=== PATIENT | male | born 1965 ===

== ENCOUNTER 2023-09-30 10:43 | Outpatient (AMB) | payer OTHER, MEDICAID, SELFPAY ==
--- NOTE | 2023-09-30 10:46 | A.OFFVIS_ITS ---
Vital Signs 09/30/23 11:03 Height 5 ft 8 in Weight 191 lb BMI 29.0 BP 120/80 Blood Pressure Location Rt brachial Position Sitting Pulse 67 Pulse Source Pulse Oximeter Pulse Oximetry (%) 97 Oxygen Delivery Method Room Air Intake Visit Reasons: ENP-Daytime somnolence/ Confirmed Intake Note: Patient presents for daytime somnolence. Wakes up during the night gasping for air. After the episode he can't fall back to sleep and during day falls asleep often. Allergies No Known Allergies Allergy (Verified 09/30/23 10:53) HPI Comments Details: 58 y/o male patient presents for new in-person visit for sleep consultation. Certified translator interpreter Wen Peoples helped for this visit. Pt reports snoring and wakes up gasping. He tried to sleep on his side, changed pillows, but not helpful. Pt has non refreshing sleep with daytime sleepiness, he can fall asleep while driving for short distance, and falls asleep watching TV. Sleep questionnaire: Have you ever been diagnosed with a sleep disorder? No. Have you ever had a sleep study in the past? No. Have you ever been treated for a sleep disorder? No. Do you take medications for a sleep disorder? clonazepam and ambien, PRN. Uses morphine and percocet for back pain. Do you snore? Yes. Do you wake up gasping at night? Yes. Do you have episodes of apneas? Yes. If yes, are they witnessed? Yes. Do you have episodes of nocturnal chest pain or dyspnea? Yes, but not all the time. Do you have difficulty initiating sleep? Yes. Do you have difficulty maintaining sleep? Yes. Do you wake up tired? Yes. Do you have headaches upon awakening? Yes. Do you wake up with dry mouth or throat? Yes. Do you have GERD? Yes. Do you have nocturia? Yes. Do you have nocturnal leg cramps? Yes. Do you have symptoms of restless legs? Yes. Do you act out your dreams? Yes. Sleep hygiene questionnaire: What is your usual sleep routine? Usual bedtime is at 12 am; Usual wake up time is at 6 am. Do you take naps? Yes. Is your sleep environment cool, dark, and quiet? Yes. Do you exercise? No. Do you take caffeine or other stimulants? Coffee two times a day. Do you use electronics in bed? Yes, watch TV. What is your work schedule? N/A. Hypersomnolence questionnaire: Do you have daytime tiredness or fatigue? Yes. Do you easily fall asleep when inactive? Yes Have you ever had episodes of sudden weakness? No. Have you ever had episodes of sudden weakness associated with strong emotions? N o. PFSH Surgical History H/O colonoscopy H/O esophagogastroduodenoscopy Family History Mother Diabetes ESRD (end stage renal disease) Father Throat cancer Social History Alcohol intake: current Patient Tobacco Use Status: Current everyday Tobacco user Substance Use Type: Crack/Cocaine Review of Systems Const All systems reviewed & are unremarkable except as noted in HPI and below Physical Exam Vital Signs: Last Vital Signs Pulse 67 09/30/23 11:03 BP 120/80 09/30/23 11:03 Pulse Ox 97 09/30/23 11:03 Oxygen Delivery Method Room Air 09/30/23 11:03 BMI result Body Mass Index 29.0 Const General: cooperative Nutritional Appearance: overweight Orientation/consciousness: patient oriented x3 Limitations: ambulation with cane Neck Neck: Yes full ROM and Yes supple Resp Effort & Inspection: normal respiratory effort and able to speak in complete sentences Neuro General: patient oriented x3 and moves all extremities Cranial nerves: Yes CN's II-XII intact bilaterally Cognition (Neuro): normal cognition Motor exam (neuro): 5/5 motor strength present throughout Psych Appearance: grossly normal Mental Status: mental status grossly normal Speech and movement: Normal speech and movement present Affect: normal affect Attitude: cooperative Assessment & Plan Assessment & Plan (1) Daytime sleepiness: Code(s): R40.0 - Somnolence Category: Medical (2) Snoring: Code(s): R06.83 - Snoring Category: Medical Plan Pt is advised to undergo home sleep study to assess for sleep apnea. Will f/u with pt after study to discuss results and appropriate treatment options. Sleep hygiene education provided. Advised patient to try magnesium 400 mg qHS for legs cramping and prevent headache. Pt to call with any worsening concerns or questions. Orders: Orders RT home sleep study Today R06.83 - Snoring, R40.0 - Somnolence Medications: New magnesium oxide 400 mg PO BEDTIME 30 days 30 tabs 6RF Coding Level of Care Code New Pt Level 3 (06060) Diagnoses Daytime sleepiness R40.0 Snoring R06.83
[2023-09-30 11:03] VITALS: BP 120/80; PULSE 67; O2SAT 97; BMI 29.0
== END 2023-09-30 11:26 | disposition home or self-care (01) ==
PROVIDERS: PCP Internal Medicine; Visit Provider Nurse Practitioner Family
DX: R40.0 Somnolence (principal); R06.83 Snoring
CPT/HCPCS: 99203

== ENCOUNTER → 2023-09-30 10:43 | Outpatient (BNVA) | payer OTHER, MEDICAID, SELFPAY | PROVIDERS: PCP Internal Medicine; Visit Provider Nurse Practitioner Family | DX: R40.0 Somnolence (principal); R06.83 Snoring | CPT/HCPCS: 99202 ==

== ENCOUNTER → 2023-11-10 10:48 | Outpatient (REF) | payer OTHER, SELFPAY | LOC: HO.SL 10:48 | PROVIDERS: Visit Provider Nurse Practitioner Family | DX: R06.83 Snoring (principal); R40.0 Somnolence | CPT/HCPCS: 95806 ==

== ENCOUNTER → 2023-11-10 10:57 | Outpatient (BNV) | payer OTHER, SELFPAY | PROVIDERS: Visit Provider Psychiatry & Neurology Neurology | DX: G47.33 Obstructive sleep apnea (adult) (pediatric) (principal) | CPT/HCPCS: 95806 ==

== ENCOUNTER 2024-05-14 12:57 | Outpatient (AMB) | payer OTHER, MEDICAID, SELFPAY ==
--- NOTE | 2024-05-14 12:55 | A.OFFVIS_ITS ---
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 Pt underwent home sleep study on 11/10/23, which showed severe sleep apnea w/ AHI 28.5/hr and O2 [place] 81%, with SpO2 < 90% x's 12.6 min and < 88% x's 4.5 min, w/ average SpO2 95%. He has started APAP 5-20 cmH2O w/ EPR, overall having improved sleep with use. However, sometimes, has leaks and higher pressures. Residual AHI 6.5 hr in pasdt 30 days. Has missed some nights of PAP use d/t recent knee surgery and back issues. He does use distilled water and cleans/changes his PAP supplies regularly. [facility] Compliance Report Usage 04/14/2024 - 05/13/2024 Usage days 25/30 days (83%) >= 4 hours 25 days (83%) < 4 hours 0 days (0%) Average usage (days used) 5 hours 24 minutes AirS[employer] 10 AutoSet Serial number [id number] Mode AutoSet Min Pressure 5 cmH2O Max Pressure 20 cmH2O EPR Fulltime EPR level 2 Response Standard Therapy Pressure - cmH2O Median: 12.1 95th percentile: 17.7 Maximum: 18.9 Leaks - L/min Median: 3.0 95th percentile: 54.1 Maximum: 74.4 Events per hour AI: 4.5 HI: 2.0 AHI: 6.5 PFSH Surgical History H/O colonoscopy H/O esophagogastroduodenoscopy Family History Mother Diabetes ESRD (end stage renal disease) Father Throat cancer Social History Alcohol intake: current Patient Tobacco Use Status: Current everyday Tobacco user Substance Use Type: Crack/Cocaine Physical Exam Vital Signs: BMI result Body Mass Index 29.2 Const General: no acute distress Orientation/consciousness: patient oriented x3 Resp Effort & Inspection: able to speak in complete sentences Neuro General: patient oriented x3 Psych Mental Status: mental status grossly normal Speech and movement: Clear speech present Attitude: cooperative Telehealth Telehealth [facility] Location of [facility] services: practice address Location of patient: address on file Patient Identification confirmed using: Name, : Yes Telehealth method: voice only Patient verbally consented to treatment: Yes Patient verbally consented to billing insurance company: Yes Patient informed of any privacy concerns related to visit: Yes Minutes spent on Phone/Video with Pt.: 17 Results Reviewed Results Reviewed: PAP complaince report. Assessment & Plan Assessment & Plan (1) History of left knee surgery: Code(s): Z98.890 - Other specified postprocedural states (2) Severe obstructive sleep apnea: Comment: 11/21/2023 HST AHI 28.5 per hour and O2 [place] 81% Code(s): G47.33 - Obstructive sleep apnea (adult) (pediatric) Category: Medical Plan Continue APAP 5-20 cmH2O nightly > 4 hours, as pt is having good clinical effect. However, will adjust EPR from 2 to 3 in hopes this lessens residual AHI. Clean machine and supplies daily. Change PAP supplies routinely. Pt to call us/respiratory home care company with any concerns. Pt to follow-up in 6 months or sooner prn. Coding Level of Care Code Tele Est Pt Level 3 (22777) Diagnoses History of left knee surgery Z98.890 Severe obstructive sleep apnea G47.33
[2024-05-14 12:56] VITALS: BMI 29.2
== END 2024-05-14 15:43 | disposition home or self-care (01) ==
PROVIDERS: PCP Internal Medicine; Visit Provider Nurse Practitioner Family
DX: G47.33 Obstructive sleep apnea (adult) (pediatric) (principal); Z98.890 Other specified postprocedural states
CPT/HCPCS: 99442